=== PATIENT | female | born 1975 | race Asian ===

== ENCOUNTER 2025-05-15 17:49 | Emergency (ER) | payer OTHER ==
[~2025-05-15] VITALS: Ht 154.9 cm; Wt 68.0 kg
[2025-05-15 18:38] LABS: PLATELET COUNT (AUTO) 433 K/uL (150-450); RED BLOOD CELL COUNT(AUTO) 4.88 MIL/uL (4.0-5.2); RED CELL DISTRIBUTION WIDTH 14.1 % (11.5-15.0); WHITE BLOOD COUNT (AUTO) 8.7 K/uL (4.3-11.0)
[2025-05-15 18:50] LABS: CALCIUM, SERUM 8.5 mg/dL (8.5-10.1); CREATININE 0.6 mg/dL (0.6-1.3); SODIUM SERUM 143 mmol/L (136-145); UREA NITROGEN, BLOOD 12 mg/dL (7-18)
[2025-05-15 19:05] LABS: ASPARTATE AMINOTRANSFERASE 20 U/L (15-37); NT-PRO BNP 6 pg/mL (0-125); TOTAL PROTEIN, SERUM 8.1 g/dL (6.4-8.2)
[2025-05-15 20:24] VITALS: BP 127/82; TEMP 98.2; O2SAT 97
== END 2025-05-15 20:25 | disposition home or self-care (01) ==
LOC: ER 17:49
DX: R00.2 Palpitations (principal); I10 Essential (primary) hypertension; R06.02 Shortness of breath; F41.9 Anxiety disorder, unspecified
CPT/HCPCS: 36415; 71045-TC; 80048-TC; 80076-TC; 83880; 84484-TC; 85025-TC